=== PATIENT | female | born 2000 | race Caucasian/White ===

== ENCOUNTER → 2024-01-16 11:30 | Outpatient (REF) | payer OTHER, SELFPAY | LOC: PNTC 11:30 | PROVIDERS: ATTENDING PHYSICIAN Obstetrics & Gynecology | DX: O35.5XX0 Maternal care for (suspected) damage to fetus by drugs, not applicable or unspecified (principal) | CPT/HCPCS: 76805 ==

== ENCOUNTER → 2024-02-06 10:33 | Outpatient (REF) | payer OTHER, SELFPAY | LOC: PNTC 10:33 | PROVIDERS: ATTENDING PHYSICIAN Obstetrics & Gynecology | DX: O35.5XX0 Maternal care for (suspected) damage to fetus by drugs, not applicable or unspecified (principal) | CPT/HCPCS: 76811 ==

== ENCOUNTER → 2024-03-05 16:35 | Outpatient (REF) | payer OTHER, SELFPAY | LOC: PNTC 16:35 | PROVIDERS: ATTENDING PHYSICIAN Obstetrics & Gynecology; PRIMARYCARE PHYSICIAN Family Medicine | DX: O35.5XX0 Maternal care for (suspected) damage to fetus by drugs, not applicable or unspecified (principal) | CPT/HCPCS: 76816 ==

== ENCOUNTER → 2024-04-22 11:18 | Outpatient (REF) | payer OTHER, SELFPAY | LOC: PNTC 11:18 | PROVIDERS: ATTENDING PHYSICIAN Obstetrics & Gynecology | DX: O35.8XX0 Maternal care for other (suspected) fetal abnormality and damage, not applicable or unspecified (principal); O99.320 Drug use complicating pregnancy, unspecified trimester | CPT/HCPCS: 76816 ==

== ENCOUNTER 2024-05-25 02:26 | Inpatient (IN) | payer OTHER, SELFPAY ==
[2024-05-25] MEDS: LR 1000 IV ×2 (02:58→04:56)
[2024-05-25 03:07] VITALS: BP 126/79; BMI 25.7
[2024-05-25 03:07] LABS: % Basophils 0.4 % (0-2); % Eosinophils 0.1 % (0-6); % Immature Granulocytes 0.6 % (0-0.5); % Lymphocytes 7.6 % (20.5-51.1); % Monocytes 6.1 % (1.7-9.3); % Neutrophils 85.2 % (42.2-75.2); Absolute Basophils 0.1 10^3/uL (0-0.2); Absolute Immature Granulocytes 0.1 10^3/uL (0-0.05); Absolute Lymphocytes 1.2 10^3/uL (1.2-3.4); Absolute Neutrophils 13.5 10^3/uL (1.4-6.5); Hematocrit 35.7 % (37.0-47.0); Mean Corp Hgb Conc. 36.4 g/dL (33.0-37.0); Mean Corpuscular Hgb 30.4 pg (27.0-31.0); Mean Corpuscular Volume 83.6 fL (81.0-99.0); Mean Platelet Volume 11.1 fL (7.4-10.4); Nucleated Red Blood Cells % 0 %; Platelet Count 267 10^3/uL (130-400); Red Blood Cell Count 4.27 10^6/uL (4.20-5.40); Red Cell Dist. Width 13.5 % (11.5-14.5); White Blood Cell Count 15.9 10^3/uL (4.8-10.8)
[2024-05-25] MEDS: BICITRA 30 ML PO (05:51)
[2024-05-25] MEDS: TYLENOL 1000 MG PO (05:51)
[2024-05-25] MEDS: ZITHROMAX INFUSION 250 IV (05:51)
[2024-05-25 06:00] LABS: Blood Urea Nitrogen 7 mg/dl (7-17); Calcium 9.1 mg/dl (8.4-10.2); Carbon Dioxide 21 mmol/L (22-30); Chloride 104 mmol/L (98-107); Estimated Creatinine Clearance 119 ml/min; Glucose 98 mg/dl (70-99); Potassium 3.9 mmol/L (3.5-5.1); Sodium 137 mmol/L (135-145); eGFR > 60.00
[2024-05-25] MEDS: VANCOCIN 300 MG IV (06:15)
[2024-05-25] MEDS: VANCOCIN 300 ML IV (06:15)
[2024-05-25] MEDS: PITOCIN 30 UNITS/NSS 500 ML IV (06:35)
[2024-05-25] MEDS: TORADOL 15 MG IV ×3 (08:43→19:38)
[2024-05-25] MEDS: PRENATAL PLUS PO (09:44)
[2024-05-26] MEDS: TORADOL 15 MG IV (02:03)
[2024-05-26 06:43] LABS: Hematocrit 29.8 % (37.0-47.0); Hemoglobin 10.9 g/dL (12.0-16.0); Mean Corp Hgb Conc. 36.6 g/dL (33.0-37.0); Mean Corpuscular Hgb 32.1 pg (27.0-31.0); Mean Corpuscular Volume 87.6 fL (81.0-99.0); Mean Platelet Volume 10.4 fL (7.4-10.4); Platelet Count 192 10^3/uL (130-400); Red Cell Dist. Width 13.7 % (11.5-14.5); White Blood Cell Count 9.6 10^3/uL (4.8-10.8)
[2024-05-26] MEDS: PRENATAL PLUS 1 TABLET PO (08:38)
[2024-05-26] MEDS: TYLENOL 650 MG PO ×2 (08:38→15:54)
[2024-05-26] MEDS: MOTRIN 600 MG PO ×2 (08:38→15:53)
[2024-05-26] MEDS: SENOKOT-S 1 TABLET PO (08:38)
[2024-05-26] MEDS: PERCOCET 5/325 1 TABLET PO ×2 (09:43→18:03)
--- NOTE | 2024-05-26 11:30 | CM ---
Mother and father seen bedside with baby boy, congratulated on of child. Mother inquiring about breast pump, requesting electric breast pump, script faxed to [facility] ([phone]) with request to deliver to Hospital. Call placed to
[facility] [phone], hours of operation M-F 8am-8pm. Per nurse, mother will be discharging 05/28/24. CM will follow up with [facility] on Monday to confirm script received.
Plan; follow up with [facility] to ensure script received, can deliver to Hospital prior to discharge.
--- NOTE | 2024-05-26 16:53 | W.PN.ANS.POP ---
Anesthesia Post Operative
- Anesthesia Post Op Note
Vital Signs Stable-See Nursing Note: Yes
Airway Patent: Yes
Adequate Pain Control: Yes
Change in Mental Status: No
Current Postoperative Nausea & Vomiting: No
Anesthesia Complications: No
General Anesthetic Recall: No
Unplanned Admission: No
Post Op Hydration Adequate: Yes
- -
Pt awake and alert, OOB to chair with no anesthesia r/t c/o at time of post op visit.
[2024-05-26] MEDS: HYDROCORTISONE 2.5% CREAM 1 APPLIC TOPICAL (22:10)
[2024-05-27] MEDS: MOTRIN 600 MG PO ×4 (01:56→21:38)
[2024-05-27] MEDS: TYLENOL 650 MG PO ×4 (01:57→21:38)
[2024-05-27] MEDS: SENOKOT-S 1 TABLET PO (07:39)
[2024-05-27] MEDS: PRENATAL PLUS 1 TABLET PO (07:40)
--- NOTE | 2024-05-27 13:10 | CM ---
Contacted [facility] with [facility] - order received. Confirmed - to be delivered to pt in hospital. Aware pt to be discharged tomorrow
Plan - breast pump to be delivered to pt in hospital
[2024-05-27] MEDS: PERCOCET 5/325 1 TABLET PO (18:23)
[2024-05-28] MEDS: BENADRYL 25 MG PO ×2 (02:09→08:24)
[2024-05-28] MEDS: MOTRIN 600 MG PO (05:08)
[2024-05-28] MEDS: TYLENOL 650 MG PO (05:08)
[2024-05-28] MEDS: SENOKOT-S 1 TABLET PO (08:24)
[2024-05-28] MEDS: PRENATAL PLUS 1 TABLET PO (08:24)
--- NOTE | 2024-05-28 13:14 | W.DS.TRANS ---
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
-
Discharge Instructions:
Discharge Diagnosis/Procedures Section
Instructions:
Stand-Alone Forms: LDRP Delivery
Changes to Home Medications: No
Discharge Medications:
DC Medications w/original date entered in [facility]
1 tab PO DAILY Supplement 05/25/24
acetaminophen 325 mg tablet 650 mg (2 x 325 mg) PO Q4HPRN PRN mild pain #0 tabs 05/28/24
hydrocortisone 2.5 % topical cream 1 applic topical BID PRN rash #0 grams 05/28/24
ibuprofen 600 mg tablet 600 mg PO Q6HPRN PRN cramps #45 tabs 05/28/24
sennosides 8.6 mg-docusate sodium 50 mg tablet 1 tab PO DAILYPRN PRN constipation #0 tabs 05/28/24
Home Medication Changes
Pending Results: No
[2024-05-28 15:43] LABS: Syphilis/T. pallidum Ab Reflex Negative (Negative)
== END 2024-05-28 11:22 | disposition home or self-care (01) | DRG 788 ==
LOC: LDRP 02:26
PROVIDERS: Obstetrics & Gynecology; ADMITTING PHYSICIAN Obstetrics & Gynecology; FAMILY PHYSICIAN Family Medicine
PROC: 10D00Z1 Extraction of Products of Conception, Low, Open Approach (ICD-10-PCS; 2024-05-25)
DX: O99.344 Other mental disorders complicating childbirth (principal); O99.892 Other specified diseases and conditions complicating childbirth; F41.0 Panic disorder [episodic paroxysmal anxiety]; M41.9 Scoliosis, unspecified; O99.02 Anemia complicating childbirth; Z37.0 Single live birth; Z87.891 Personal history of nicotine dependence; Z88.0 Allergy status to penicillin; Z3A.37 37 weeks gestation of pregnancy
CPT/HCPCS: 80048; 85025; 85027; 86780; 86850; 86900; 86901; 87070